=== PATIENT | male | born 1955 | race Caucasian/White ===

== ENCOUNTER 2018-04-29 10:20 | Emergency (ER) | payer BC ==
[2018-04-29 10:24] VITALS: BMI 23.3
[2018-04-29 10:25] VITALS: RESP 16; TEMP 98.1; O2SAT 98
--- NOTE | 2018-04-29 10:44 | C.PDOC ---
History Of Present Illness 63 year old male presents to ED complaining of cough and congestion x 3 days. Patient reports cough is productive of yellow sputum and is worse at night. Patient denies fever and offers no other medical complaints. Time Seen by Provider: 04/29/18 10:26 Chief Complaint (Nursing): Cough, Cold, Congestion History Per: Patient History/Exam Limitations: no limitations Onset/Duration Of Symptoms: Days Current Symptoms Are (Timing): Still Present Associated Symptoms: Cough, Sputum (yellow), Other (congestion). denies: Fever Recent travel outside of the [place]: No Past Medical History Reviewed: Historical Data, Nursing Documentation, Vital Signs Vital Signs: Last Vital Signs Temp 98.1 F 04/29/18 10:23 Pulse 79 04/29/18 10:23 Resp 16 04/29/18 10:23 BP 138/77 04/29/18 10:23 Pulse Ox 98 04/29/18 10:45 - Medical History PMH: HTN, Hypercholesterolemia Denies: Chronic Kidney Disease Surgical History: No Surg Hx - [facility] Procedures ALCOHOL DETOXIFICATION (06/14/14) CLOSED ENDOSCOPIC BIOPSY OF LARGE INTESTINE (10/02/14) ENDOSCOPIC CONTROL OF GASTRIC OR DUODENAL BLEEDING (06/14/14) ESOPHAGOGASTRODUODENOSCOPY [EGD] W/CLOSED BIOPSY (10/02/14) PACKED CELL TRANSFUSION (06/14/14) Family History: States: No Known Family Hx - Social History Hx Tobacco Use: No Hx Alcohol Use: Yes Hx Substance Use: Yes - Immunization History Hx Tetanus Toxoid Vaccination: No Hx Influenza Vaccination: No Hx Pneumococcal Vaccination: No Review Of Systems Except As Marked, All Systems Reviewed And Found Negative. ENT: Positive for: Nose Congestion Respiratory: Positive for: Cough, Sputum (yellow) Physical Exam - Physical Exam Appears: Non-toxic, No Acute Distress Skin: Warm, Dry Head: Atraumatic, Normacephalic Eye(s): bilateral: Normal Inspection, PERRL, EOMI Nose: Normal Oral Mucosa: Moist Chest: Symmetrical Cardiovascular: Rhythm Regular, No Murmur Respiratory: Normal Breath Sounds, No Rales, No Rhonchi, No Wheezing Gastrointestinal/Abdominal: Normal Exam, Soft, No Tenderness Extremity: Bilateral: Atraumatic, Normal Color And Temperature, Normal ROM Neurological/Psych: Oriented x3, Normal Speech Gait: Steady ED Course And Treatment O2 Sat by Pulse Oximetry: 98 (RA) Pulse Ox Interpretation: Normal Medical Decision Making Medical Decision Making: Impression: Bronchitis Plan: Zithromax Disposition Counseled Patient/Family Regarding: Studies Performed, Diagnosis, Need For Followup, Rx Given - Disposition Disposition: HOME/ ROUTINE Disposition Time: 10:42 Condition: STABLE Additional Instructions: follow up with your doctor within 2 days call to make an appointment return to ER if symptoms worsens or progress take medications as prescribed Prescriptions: Azithromycin [Zithromax] 250 mg PO DAILY #4 tab Promethazine HCl/Codeine [Prometh-Codein 6.25-10 mg/5 ml] 5 ml PO QN PRN #70 syrup PRN Reason: Cough And Congestion Instructions: Acute Bronchitis Forms: General Discharge Instructions, [facility] (Bermudian), Work Excuse - Clinical Impression Clinical Impression: Bronchitis - Scribe Statement The provider has reviewed the documentation as recorded by the Aline Saldanaed Provider Attestation: All medical record entries made by the Aline were at my direction and personally dictated by me. I have reviewed the chart and agree that the record accurately reflects my personal performance of the history, physical exam, medical decision making, and the department course for this patient. I have also personally directed, reviewed, and agree with the discharge instructions and disposition.
[2018-04-29 11:10] VITALS: BP 132/85; PULSE 78
== END 2018-04-29 11:09 | disposition home or self-care (01) ==
LOC: C.ER 10:20
DX: J40 Bronchitis, not specified as acute or chronic (principal)

== ENCOUNTER 2018-07-05 11:06 | Inpatient (IN) | payer BC ==
[2018-07-05 11:06] VITALS: BMI 23.3
[2018-07-05] MEDS ORDERED: Sodium Chloride 0.9% 1,000 ML IV ONE (11:23)
[2018-07-05 11:56] LABS: BASO % 0.6 % (0.0-2.0); EOS % 0.5 % (0.0-4.0); HEMOGLOBIN 12.9 g/dL (12.0-18.0); LYMPH # 1.5 K/uL (1.0-4.3); LYMPH % 27.8 % (20.0-40.0); MEAN CELL VOLUME 87.6 fL (80.0-94.0); MEAN CORPUSCULAR HEMOGLOBIN 30.8 pg (27.0-31.0); MEAN CORPUSCULAR HGB CONC 35.2 g/dL (33.0-37.0); MEAN PLATELET VOLUME 8.2 fL (7.2-11.7); MONO # 0.5 K/uL (0.0-0.8); MONO % 8.4 % (0.0-10.0); NEUT # 3.4 K/uL (1.8-7.0); NEUT % 62.7 % (50.0-75.0); NRBC % 0.1 % (0.0-2.0); RBC 4.18 Mil/uL (4.40-5.90); RED CELL DISTRIBUTION WIDTH 13.6 % (11.5-14.5); WHITE BLOOD COUNT 5.4 K/uL (4.8-10.8)
[2018-07-05 11:58] LABS: ALB/GLOB RATIO 1.2 (1.0-2.1); ALBUMIN 4.6 g/dL (3.5-5.0); ALT/SGPT 94 U/L (21-72); AST/SGOT 184 U/L (17-59); BLOOD UREA NITROGEN 12 mg/dL (9-20); CALCIUM 9.3 mg/dl (8.6-10.4); GFR NON-AFRICAN AMERICAN > 60; LIPASE 160 U/L (23-300)
[2018-07-05] MEDS ORDERED: Potassium Chloride 20 mEq ER Tab PO STA (12:20)
[2018-07-05] MEDS ORDERED: Potassium Chloride 20 mEq 100 ML ONE (12:58)
[2018-07-05] MEDS ORDERED: Potassium Chloride 20 mEq ER Tab PO ONE (12:58)
[2018-07-05] MEDS ORDERED: Multivitamin (MVI) 10 ML, Thiamine 100 MG, Folic Acid 1 MG in Sodium Chloride 0.9% 1,00... IV ONE (13:35)
--- NOTE | 2018-07-05 14:33 | CP.PCM.HP ---
History of Present Illness - History of Present Illness History of Present Illness: COMPREHENSIVE HISTORY & PHYSICAL EXAM HPI Patient admitted from emergency room with abdominal pain nausea vomiting no hematemesis or melena. Patient took some alcohol in the morning. Patient has history of chronic EtOH abuse with gastritis diagnosed by EGD 3 years ago. Patient also has a history of alcoholic liver disease. Patient also has a history of hypertension. PAST HIST. PERSONAL HIST: Smoking. y Alcohol. Daily alcohol for many years Allergy N Travel_- . FAMILY HIST : ROS : Constitutional: Negative for weight change, chills, night sweats, fatigue and usage of assist device. Eyes: Negative for redness, swelling, itching, discharge, vision changes, blurry vision, double vision, glaucoma, cataracts, Ears: Negative for hearing loss, ringing, , tinnitus, vertigo Nose: Negative for rhinorrhea, stuffiness, sniffing, itching, postnasal drip, discoloration, nasal congestion and epistaxis. Throat: Negative for throat clearing, sore throat, hoarseness, difficulty swallowing and difficulty speaking. Respiratory: Negative for cough, , sputum production, chest tightness, wheezing, pleuritic chest pain ,daytime somnolence, chronic cough, hemoptysis, snoring at night, Cardiovascular: Negative for chest pain, palpitations, orthopnea, PND, Edema of legs, leg cramps, angina, claudication, , irregular heartbeat, Neurology: Negative for irritability, muscle weakness, numbness and tingling, seizures, tremors, migraines, slurred speech, syncope, memory loss, mood stevens es, recurrent headaches Gastrointestinal: Negative for difficulty swallowing, diarrhea, constipation, black stools, rectal bleeding, Genitourinary: Negative for frequent urination, hematuria, discharge, incontinence, urinary retention, frequent UTI, Psychiatric: Negative for depression, anxiety/panic, suicidal tendencies, Musculoskeletal: Negative for swollen joints, back pain, , neck pain, morning stiffness of joints, . Skin: Negative for rash, ulcers, itching, dry skin and pigmented lesions. P/E: Constitutional: Appears stated age and in no apparent distress. Head: Normocephalic. Ears: External ear canals patent without inflammation. Tympanic membranes intact with normal light reflex and landmark. Eyes: Pupils are central, bilaterally equal, symmetrical and reacts to light with normal movements and no icterus or pallor. Nose: External nares are patent. Mucosa is pink Mouth-Throat: Good general appearance and condition. No post-pharyngeal/oropharyngeal erythema and tonsillar hypertrophy. Good dental hygiene. Neck-Lymphatic: Neck is supple with normal ROM, no thyromegaly, lymph nodes or masses. JVD is normal with no carotid bruit. Lungs: Clear to percussion and auscultation with bilateral normal air entry. Cardiovascular: S1 and S2 are normal with no murmurs, gallops and rub. GI Exam: No hepatomegaly. Abdomen is soft and tender. No Organomegaly , masses or hernias are evident and bowel sounds are normal and active. Neurology: Higher function and all cranial nerves intact, with no gross motor or sensory deficit. Superficial and deep reflexes are normal with downwards planters. No cerebellar deficit with normal gait. Musculoskeletal: No tender spots with normal curvature of the spine with no swelling or restricted ROM of the small and large joints. Extremities: Homans sign absent. Intact pulses with no pitting edema, calf tenderness or skin color changes. Skin: No rash, eruptions or abnormal skin pigmentation LAB/RADIOLOGY: ASSESMENT : Acute alcoholic gastritis with history of alcohol abuse and alcohol liver disease Hypertension stable Electrolyte imbalance PLAN: GI evaluation and continue his present medication. Present on Admission - Present on Admission Any Indicators Present on Admission: No Past Patient History - Infectious Disease Hx of Infectious Diseases: None - Past Medical History & Family History Past Medical History?: Yes - Past Social History Smoking Status: Never Smoked - CARDIAC Hx Hypercholesterolemia: Yes Hx Hypertension: Yes - PULMONARY Hx Respiratory Disorders: No - NEUROLOGICAL Hx Neurological Disorder: No - HEENT Hx HEENT Problems: No - RENAL Hx Chronic Kidney Disease: No - ENDOCRINE/METABOLIC Hx Endocrine Disorders: No - HEMATOLOGICAL/ONCOLOGICAL Hx Blood Disorders: No - INTEGUMENTARY Hx Dermatological Problems: No - MUSCULOSKELETAL/RHEUMATOLOGICAL Hx Musculoskeletal Disorders: No - GENITOURINARY/GYNECOLOGICAL Hx Genitourinary Disorders: Yes Hx Prostate Problems: Yes (BIOPSY OF PROSTATE WITH NEGATIVE RESULTS) - PSYCHIATRIC Hx Psychophysiologic Disorder: No Hx Substance Use: Yes - SURGICAL HISTORY Hx Surgeries: Yes Other/Comment: LEFT BACK NECK REMOVAL OF CYST,PROSTATE BIOPSY - ANESTHESIA Hx Anesthesia: Yes Hx Anesthesia Reactions: No Hx Malignant Hyperthermia: No Meds Allergies/Adverse Reactions: Allergies Allergy/AdvReac Type Severity Reaction Status Date / Time No Known Allergies Allergy Verified 04/29/18 10:22 Results - Vital Signs Recent Vital Signs: Last Vital Signs Temp 98.3 F 07/05/18 11:15 Pulse 85 07/05/18 13:45 Resp 18 07/05/18 11:15 BP 125/80 07/05/18 13:45 Pulse Ox 98 07/05/18 11:15 - Labs Result Diagrams: 07/05/18 11:42 07/05/18 11:42 Labs: Laboratory Results - last 24 hr 07/05/18 07/05/18 11:42 11:42 WBC 5.4 D RBC 4.18 L Hgb 12.9 Hct 36.6 MCV 87.6 D MCH 30.8 MCHC 35.2 RDW 13.6 Plt Count 193 D MPV 8.2 Neut % (Auto) 62.7 Lymph % (Auto) 27.8 [place] % (Auto) 8.4 Eos % (Auto) 0.5 Baso % (Auto) 0.6 Neut # (Auto) 3.4 Lymph # (Auto) 1.5 [place] # (Auto) 0.5 Eos # (Auto) 0.0 Baso # (Auto) 0.0 Sodium 129 L Potassium 3.0 L Chloride 87 L Carbon Dioxide 25 Anion Gap 20 BUN 12 Creatinine 1.2 Est GFR ( Amer) > 60 Est GFR (Non-Af Amer) > 60 Random Glucose 117 H Calcium 9.3 Magnesium 1.2 L Total Bilirubin 1.1 AST 184 H ALT 94 H D Alkaline Phosphatase 73 Total Protein 8.4 H Albumin 4.6 Globulin 3.8 Albumin/Globulin Ratio 1.2 Lipase 160 Alcohol, Quantitative 56 H
[2018-07-05] MEDS ORDERED: Magnesium Sulfate 1 gm in D5W 1 GM/100 ML BAG IVPB ONE ×2 (15:07→18:09)
[2018-07-05] MEDS: Magnesium Sulfate 1 gm in D5W 1 GM/100 ML BAG IVPB SCH ×2 (15:19→18:00)
--- NOTE | 2018-07-05 15:47 | C.PDOC ---
History Of Present Illness 63-year-old male, presents to the emergency department with multiple episodes of nausea and non-bloody/non-bilious vomiting. Patient has a Hx of alcohol abuse and gastritis. He admits to drinking daily, and last drink was this morning. He denies any blood in stool or urine. No other complaints at this time. Time Seen by Provider: 07/05/18 11:21 Chief Complaint (Nursing): Substance Abuse History Per: Patient History/Exam Limitations: no limitations Current Symptoms Are (Timing): Still Present Severity: Moderate Past Medical History Reviewed: Historical Data, Nursing Documentation, Vital Signs Vital Signs: Last Vital Signs Temp 98.3 F 07/05/18 11:15 Pulse 85 07/05/18 13:45 Resp 18 07/05/18 11:15 BP 125/80 07/05/18 13:45 Pulse Ox 98 07/05/18 11:15 - Medical History PMH: HTN, Hypercholesterolemia Denies: Chronic Kidney Disease - [facility] Procedures ALCOHOL DETOXIFICATION (06/14/14) CLOSED ENDOSCOPIC BIOPSY OF LARGE INTESTINE (10/02/14) ENDOSCOPIC CONTROL OF GASTRIC OR DUODENAL BLEEDING (06/14/14) ESOPHAGOGASTRODUODENOSCOPY [EGD] W/CLOSED BIOPSY (10/02/14) PACKED CELL TRANSFUSION (06/14/14) Family History: States: No Known Family Hx - Social History Hx Tobacco Use: No Hx Alcohol Use: Yes Hx Substance Use: Yes - Immunization History Hx Tetanus Toxoid Vaccination: No Hx Influenza Vaccination: No Hx Pneumococcal Vaccination: No Review Of Systems Constitutional: Negative for: Fever, Chills Cardiovascular: Negative for: Chest Pain, Palpitations Respiratory: Negative for: Shortness of Breath Gastrointestinal: Positive for: Nausea, Vomiting. Negative for: Diarrhea Psych: Negative for: Depression, Psychosis, Suicidal ideation, Withdrawal Physical Exam - Physical Exam Appears: Non-toxic, No Acute Distress Skin: Warm, Dry, No Rash Head: Atraumatic, Normacephalic Eye(s): bilateral: Normal Inspection Nose: Normal Oral Mucosa: Moist Lips: Normal Appearing Neck: Normal ROM Cardiovascular: Rhythm Regular Respiratory: Normal Breath Sounds Gastrointestinal/Abdominal: Normal Exam Back: Normal Inspection Extremity: Normal ROM Neurological/Psych: Oriented x3, Normal Speech ED Course And Treatment - Laboratory Results Result Diagrams: 07/05/18 11:42 07/05/18 11:42 O2 Sat by Pulse Oximetry: 98 Pulse Ox Interpretation: Normal (RA) Disposition - Disposition Disposition: HOSPITALIZED Disposition Time: 13:20 Condition: STABLE - Clinical Impression Clinical Impression: Alcohol dependence, Hypokalemia, Hyponatremia - Scribe Statement The provider has reviewed the documentation as recorded by the Scribe (Humberto overton) All medical record entries made by the Scribe were at my direction and personally dictated by me. I have reviewed the chart and agree that the record accurately reflects my personal performance of the history, physical exam, medical decision making, and the department course for this patient. I have also personally directed, reviewed, and agree with the discharge instructions and disposition.
[2018-07-05 19:53] LABS: INR 1.2; PROTHROMBIN TIME 12.6 SECONDS (9.7-12.2)
[2018-07-05] MEDS: Dextrose 5%/0.9% NS 1,000 ML IV SCH (21:20)
[2018-07-06] MEDS: Dextrose 5%/0.9% NS 1,000 ML IV SCH ×2 (04:31→13:13)
[2018-07-06 07:30] LABS: BASO % 0.7 % (0.0-2.0); EOS # 0.1 K/uL (0.0-0.7); EOS % 1.5 % (0.0-4.0); HEMOGLOBIN 12.1 g/dL (12.0-18.0); LYMPH # 1.3 K/uL (1.0-4.3); LYMPH % 30.6 % (20.0-40.0); MEAN CELL VOLUME 89.3 fL (80.0-94.0); MEAN CORPUSCULAR HEMOGLOBIN 30.5 pg (27.0-31.0); MEAN CORPUSCULAR HGB CONC 34.1 g/dL (33.0-37.0); MEAN PLATELET VOLUME 8.5 fL (7.2-11.7); MONO # 0.4 K/uL (0.0-0.8); MONO % 8.6 % (0.0-10.0); NEUT # 2.5 K/uL (1.8-7.0); NEUT % 58.6 % (50.0-75.0); NRBC % 0.3 % (0.0-2.0); RBC 3.98 Mil/uL (4.40-5.90); RED CELL DISTRIBUTION WIDTH 14.3 % (11.5-14.5); WHITE BLOOD COUNT 4.2 K/uL (4.8-10.8)
[2018-07-06 07:38] LABS: ALB/GLOB RATIO 1.2 (1.0-2.1); ALT/SGPT 75 U/L (21-72); AST/SGOT 132 U/L (17-59); BLOOD UREA NITROGEN 5 mg/dL (9-20); GFR NON-AFRICAN AMERICAN > 60
[2018-07-06] MEDS ORDERED: Propofol 10 mg/ml Inj (20 ML) ONE (08:45)
[2018-07-06] MEDS ORDERED: Lactated Ringer's 1,000 ML IV ONE (08:50)
[2018-07-06] MEDS ORDERED: Phytonadione 10 mg/ml Inj (Adult) SC ONE (09:15)
[2018-07-06 09:39] VITALS: RESP 20
[2018-07-06] MEDS ORDERED: Ciprofloxacin 400mg/200ml D5W 400 MG/200 ML BAG IVPB ONE (10:00)
[2018-07-06] MEDS ORDERED: metroNIDAZOLE IV 500 mg/100 ml 500 MG/100 ML BAG IVPB ONE (10:00)
[2018-07-06 10:19] VITALS: BP 117/73; PULSE 96; TEMP 98.4; O2SAT 97
[2018-07-06] MEDS ORDERED: Phytonadione 10 mg/ml Inj (Adult) SC STA (11:47)
--- NOTE | 2018-07-06 14:02 | CP.PCM.PN ---
Subjective - Date & Time of Evaluation Date of Evaluation: 07/06/18 Time of Evaluation: 14:02 - Subjective Subjective: CHIEF COMPLAINTS TODAY : No further nausea or vomiting. Less abdominal pain Patient had an endoscopy done this morning ROS. HEENT : N. Resp : No cough, wheezing ,pleuritic CP ,or hemoptysis Cardio : No anginal CP, PND, orthopnea, palpitation GI : No abd.pain, n/v ,diarrhea or GI bleeding . FUR [employer] SE[employer]ER : No headache, vertigo, focal deficit. Musculoskel : No joint swelling , Derm : No rash Psych : Normal affect. Ext : No swelling ,calf pain PE. Pt. is alert awake in no distress. V.S As noted in the chart Head ,ear nose,throat and eyes : Normal. Neck : Supple with normal carotids. Lungs: Clear air entry. Heart : S1 & S2 normal with S4. No murmur. Abd : Soft non tender with normal bowel sounds. Neuro : Moves all ext. with no localized deficit. Ext : No edema with intact pulses.Non tender calves Derm : No rashes or decubitus ulcer. LABS/RADIOLOGY: Repeat hemoglobin is 12.0 electrolytes are normalized ASSESSMENT/PLAN : Upper endoscopy showed gastritis with a gastric ulcer nonbleeding and small polyps. Continue current medications. Objective - Vital Signs/Intake and Output Vital Signs (last 24 hours): Temp Pulse Resp BP Pulse Ox 98.4 F 96 H 20 117/73 97 07/06/18 10:17 07/06/18 10:17 07/06/18 10:17 07/06/18 10:17 07/06/18 10:17 - Medications Medications: Current Medications Chlordiazepoxide (Librium) 25 mg PO Q8 [facility] Last Admin: 07/06/18 06:45 Dose: 25 mg Dextrose/Sodium Chloride (Dextrose 5%/0.9% Ns 1000 Ml) 1,000 mls @ 125 mls/hr IV .Q8H [facility] Last Admin: 07/06/18 13:13 Dose: Not Given Metoclopramide HCl (Reglan) 5 mg IVP Q6H [facility] Last Admin: 07/06/18 12:04 Dose: Not Given Pantoprazole Sodium (Protonix Inj) 40 mg IVP Q12H [facility] Last Admin: 07/06/18 06:45 Dose: 40 mg - Labs Labs: 07/06/18 06:59 07/06/18 06:59 PT 12.6 SECONDS (9.7-12.2) H 07/05/18 19:36 INR 1.2 07/05/18 19:36 APTT 26 SECONDS (21-34) 07/05/18 19:36
--- NOTE | 2018-07-07 14:14 | CP.PCM.DIS ---
Provider - Provider Date of Admission: 07/05/18 14:20 Attending physician: Maria De Jesus Moreno MD Time Spent in preparation of Discharge (in minutes): 36 Hospital Course - Lab Results Lab Results: Most Recent Lab Values WBC 4.2 K/uL (4.8-10.8) L 07/06/18 06:59 RBC 3.98 Mil/uL (4.40-5.90) L 07/06/18 06:59 Hgb 12.1 g/dL (12.0-18.0) 07/06/18 06:59 Hct 35.6 % (35.0-51.0) 07/06/18 06:59 MCV 89.3 fL (80.0-94.0) 07/06/18 06:59 MCH 30.5 pg (27.0-31.0) 07/06/18 06:59 MCHC 34.1 g/dL (33.0-37.0) 07/06/18 06:59 RDW 14.3 % (11.5-14.5) 07/06/18 06:59 Plt Count 152 K/uL (130-400) 07/06/18 06:59 MPV 8.5 fL (7.2-11.7) 07/06/18 06:59 Neut % (Auto) 58.6 % (50.0-75.0) 07/06/18 06:59 Lymph % (Auto) 30.6 % (20.0-40.0) 07/06/18 06:59 [place] % (Auto) 8.6 % (0.0-10.0) 07/06/18 06:59 Eos % (Auto) 1.5 % (0.0-4.0) 07/06/18 06:59 Baso % (Auto) 0.7 % (0.0-2.0) 07/06/18 06:59 Neut # (Auto) 2.5 K/uL (1.8-7.0) 07/06/18 06:59 Lymph # (Auto) 1.3 K/uL (1.0-4.3) 07/06/18 06:59 [place] # (Auto) 0.4 K/uL (0.0-0.8) 07/06/18 06:59 Eos # (Auto) 0.1 K/uL (0.0-0.7) 07/06/18 06:59 Baso # (Auto) 0.0 K/uL (0.0-0.2) 07/06/18 06:59 PT 12.6 SECONDS (9.7-12.2) H 07/05/18 19:36 INR 1.2 07/05/18 19:36 APTT 26 SECONDS (21-34) 07/05/18 19:36 Sodium 135 mmol/L (132-148) 07/06/18 06:59 Potassium 3.6 mmol/L (3.6-5.2) 07/06/18 06:59 Chloride 99 mmol/L (98-107) 07/06/18 06:59 Carbon Dioxide 25 mmol/L (22-30) 07/06/18 06:59 Anion Gap 15 (10-20) 07/06/18 06:59 BUN 5 mg/dL (9-20) L 07/06/18 06:59 Creatinine 0.8 mg/dL (0.8-1.5) 07/06/18 06:59 Est GFR ( Amer) > 60 07/06/18 06:59 Est GFR (Non-Af Amer) > 60 07/06/18 06:59 Random Glucose 143 mg/dL (75-110) H 07/06/18 06:59 Calcium 8.0 mg/dl (8.6-10.4) L 07/06/18 06:59 Phosphorus 2.7 mg/dL (2.5-4.5) 07/06/18 06:59 Magnesium 1.6 mg/dL (1.6-2.3) 07/06/18 06:59 Total Bilirubin 1.4 mg/dL (0.2-1.3) H 07/06/18 06:59 AST 132 U/L (17-59) H D 07/06/18 06:59 ALT 75 U/L (21-72) H D 07/06/18 06:59 Alkaline Phosphatase 65 U/L (38-126) 07/06/18 06:59 Total Protein 7.3 g/dL (6.3-8.3) 07/06/18 06:59 Albumin 4.0 g/dL (3.5-5.0) 07/06/18 06:59 Globulin 3.4 gm/dL (2.2-3.9) 07/06/18 06:59 Albumin/Globulin Ratio 1.2 (1.0-2.1) 07/06/18 06:59 Lipase 160 U/L (23-300) 07/05/18 11:42 Carcinoembryonic Ag 2.9 ng/mL (0-3.0) 07/05/18 19:36 CA 19-9 Antigen 22.8 U/mL (0-37) 07/05/18 19:36 Alcohol, Quantitative 56 mg/dl (0-10) H 07/05/18 11:42 - Hospital Course Hospital Course: Patient admitted from emergency room with abdominal pain nausea vomiting no hematemesis or melena. Patient took some alcohol in the morning. Patient has history of chronic EtOH abuse with gastritis diagnosed by EGD 3 years ago. Patient also has a history of alcoholic liver disease. Patient also has a history of hypertension. PAST HIST. PERSONAL HIST: Smoking. y Alcohol. Daily alcohol for many years The following day patient had an upper endoscopy done which showed gastritis and gastric ulcer nonbleeding and gastric polyps multiple biopsies were done. The next day patient signed out AGAINST MEDICAL ADVICE patient did not cone picker his prescription. We will contact patient by phone for the biopsy report as he failed to give me his PMDs number Discharge Plan - Follow Up Plan Condition: STABLE Disposition: AGAINST MEDICAL ADVICE
== END 2018-07-06 15:22 | disposition left against medical advice (07) | DRG 392 ==
LOC: C.ER 11:06 → C.9E 14:20 → C.5S 17:26
PROVIDERS: ADMIT Internal Medicine Cardiovascular Disease; ATTEND Internal Medicine Cardiovascular Disease
PROC: 0DB68ZX Excision of Stomach, Via Natural or Artificial Opening Endoscopic, Diagnostic (ICD-10-PCS; principal; 2018-07-06 08:45)
DX: K29.20 Alcoholic gastritis without bleeding (principal); E87.1 Hypo-osmolality and hyponatremia; K25.9 Gastric ulcer, unspecified as acute or chronic, without hemorrhage or perforation; K31.7 Polyp of stomach and duodenum; K70.9 Alcoholic liver disease, unspecified; F10.20 Alcohol dependence, uncomplicated; Y90.2 Blood alcohol level of 40-59 mg/100 ml; I10 Essential (primary) hypertension; E78.00 Pure hypercholesterolemia, unspecified; E87.6 Hypokalemia

== ENCOUNTER 2018-10-19 11:39 | Emergency (ER) | payer BC ==
[2018-10-19 11:40] VITALS: BMI 23.3
--- NOTE | 2018-10-19 12:41 | C.PDOC ---
History Of Present Illness 63 year old male presents to the ED for evaluation of decreased appetite, abdominal discomfort, nausea, vomiting, diarrhea which began two weeks ago. Patient reports he has been drinking alcohol every day and his last drink was at midnight. Patient denies fever, chills, or blood in vomitus. Time Seen by Provider: 10/19/18 11:47 Chief Complaint (Nursing): Abdominal Pain History Per: Patient History/Exam Limitations: no limitations Onset/Duration Of Symptoms: Days Current Symptoms Are (Timing): Still Present Additional History Per: Patient Past Medical History Reviewed: Historical Data, Nursing Documentation, Vital Signs Vital Signs: Last Vital Signs Temp 98.3 F 10/19/18 11:48 Pulse 81 10/19/18 11:48 Resp 20 10/19/18 11:48 BP 146/79 10/19/18 11:48 Pulse Ox 99 10/19/18 11:48 - Medical History PMH: HTN, Hypercholesterolemia Denies: Chronic Kidney Disease Surgical History: No Surg Hx - [facility] Procedures ALCOHOL DETOXIFICATION (06/14/14) CLOSED ENDOSCOPIC BIOPSY OF LARGE INTESTINE (10/02/14) ENDOSCOPIC CONTROL OF GASTRIC OR DUODENAL BLEEDING (06/14/14) ESOPHAGOGASTRODUODENOSCOPY [EGD] W/CLOSED BIOPSY (10/02/14) EXCISION OF STOMACH, ENDO, DIAGN (07/05/18) PACKED CELL TRANSFUSION (06/14/14) Family History: States: Unknown Family Hx - Social History Hx Tobacco Use: No Hx Alcohol Use: Yes Hx Substance Use: Yes - Immunization History Hx Tetanus Toxoid Vaccination: No Hx Influenza Vaccination: No Hx Pneumococcal Vaccination: No Review Of Systems Constitutional: Positive for: Other (decreased appetite ). Negative for: Fever, Chills Gastrointestinal: Positive for: Nausea, Vomiting, Diarrhea, Other (abdominal discomfort ). Negative for: Hematemesis Psych: Positive for: Other (EtOH use ) Physical Exam - Physical Exam Appears: Non-toxic, No Acute Distress Skin: Normal Color, Warm, Dry, No Rash Head: Atraumatic, Normacephalic Eye(s): bilateral: Normal Inspection, PERRL, EOMI Ear(s): Bilateral: Normal Oral Mucosa: Moist Throat: No Erythema, No Exudate Neck: Normal ROM, Supple Chest: Symmetrical, No Deformity, No Tenderness Cardiovascular: Rhythm Regular, No Friction Rub, No Murmur Respiratory: Normal Breath Sounds, No Rales, No Rhonchi, No Wheezing Gastrointestinal/Abdominal: Soft, No Tenderness, No Guarding, No Rebound Back: Normal Inspection, No CVA Tenderness Extremity: Normal ROM, Capillary Refill (less than 2 seconds ), No Swelling Pulses: Left Dorsalis Pedis: Normal, Right Dorsalis Pedis: Normal Neurological/Psych: Oriented x3, Normal Speech, Normal Cognition, Normal Motor Gait: Steady ED Course And Treatment - Laboratory Results Result Diagrams: 10/19/18 12:54 10/19/18 12:54 O2 Sat by Pulse Oximetry: 99 (on RA) Pulse Ox Interpretation: Normal Medical Decision Making Medical Decision Making: Progress: Bloodwork ordered and reviewed. Librium PO, Pepcid IVP, Zofran IVP and IV Fluids given. On re-exam, the patient reports improvement of symptoms. Lungs are CTA, heart is RRR, Abdomen is soft, non-tender and the patient is tolerating PO well. Follow up with the medical doctor within 1-2 days. Return if worsened. Disposition - Disposition Referrals: Italo Chavis MD [Staff Provider] - Disposition: HOME/ ROUTINE Disposition Time: 14:24 Condition: GOOD Additional Instructions: Follow up with the medical doctor within 1-2 days. Return if worsened. Prescriptions: chlordiazePOXIDE [Chlordiazepoxide HCl] 25 mg PO TID #7 cap Famotidine [Pepcid] 20 mg PO BID #20 tab Instructions: Alcohol Use - When Is Drinking a Problem? Forms: [facility] (Thai) - Clinical Impression Clinical Impression: Alcohol dependence, Alcohol withdrawal - PA / CLINICAL PROJECT COORDINATOR / Resident Statement MD/DO has reviewed & agrees with the documentation as recorded. - Scribe Statement The provider has reviewed the documentation as recorded by the Scribe (Jen Donovan) All medical record entries made by the Scribe were at my direction and personal ly dictated by me. I have reviewed the chart and agree that the record accurately reflects my personal performance of the history, physical exam, medical decision making, and the department course for this patient. I have also personally directed, reviewed, and agree with the discharge instructions and disposition.
[2018-10-19] MEDS ORDERED: Sodium Chloride 0.9% 1,000 ML IV ONE (12:47)
[2018-10-19 12:58] LABS: BASO % 0.8 % (0.0-2.0); EOS % 0.9 % (0.0-4.0); HEMOGLOBIN 13.9 g/dL (12.0-18.0); LYMPH # 1.1 K/uL (1.0-4.3); LYMPH % 39.9 % (20.0-40.0); MEAN CELL VOLUME 89.4 fL (80.0-94.0); MEAN CORPUSCULAR HEMOGLOBIN 29.8 pg (27.0-31.0); MEAN CORPUSCULAR HGB CONC 33.3 g/dL (33.0-37.0); MEAN PLATELET VOLUME 7.7 fL (7.2-11.7); MONO # 0.3 K/uL (0.0-0.8); MONO % 12.1 % (0.0-10.0); NEUT # 1.3 K/uL (1.8-7.0); NEUT % 46.3 % (50.0-75.0); RBC 4.67 Mil/uL (4.40-5.90); RED CELL DISTRIBUTION WIDTH 13.2 % (11.5-14.5); WHITE BLOOD COUNT 2.8 K/uL (4.8-10.8)
[2018-10-19] MEDS ORDERED: Sodium Chloride 0.9% 1,000 ML ONE (13:00)
[2018-10-19 13:09] LABS: ALB/GLOB RATIO 1.3 (1.0-2.1); ALBUMIN 4.7 g/dL (3.5-5.0); ALT/SGPT 47 U/L (21-72); AST/SGOT 80 U/L (17-59); BLOOD UREA NITROGEN 6 mg/dL (9-20); CALCIUM 8.5 mg/dl (8.6-10.4); GFR NON-AFRICAN AMERICAN > 60; LIPASE 98 U/L (23-300)
[2018-10-19 14:39] VITALS: BP 142/78; PULSE 82; RESP 19; TEMP 98.4
[2018-10-21 17:00] VITALS: O2SAT 99
== END 2018-10-19 14:40 | disposition home or self-care (01) ==
LOC: C.ER 11:39
DX: F10.239 Alcohol dependence with withdrawal, unspecified (principal); I10 Essential (primary) hypertension; E78.00 Pure hypercholesterolemia, unspecified
CPT/HCPCS: 80053; 83690; 85025; 96361; 96374; 96375; 99284; J2405; J7030